=== PATIENT | female | born 2000 | race Caucasian/White ===

== ENCOUNTER 2021-05-29 02:22 | Emergency (ER) | payer OTHER ==
[~2021-05-29] VITALS: Ht 170.2 cm; Wt 113.6 kg
[2021-05-29] MEDS ORDERED: PREDNISONE20 MG PO (04:37)
[2021-05-29] MEDS ORDERED: PEPCID 20MG TAB20 MG PO (04:37)
[2021-05-29 05:35] VITALS: BP 122/76; PULSE 76; TEMP 98.4
== END 2021-05-29 05:35 | disposition home or self-care (01) ==
LOC: COL.ER 02:22
DX: L50.9 Urticaria, unspecified (principal)
CPT/HCPCS: J1200; J2930